=== PATIENT | female | born 1950 | race Caucasian/White ===

== ENCOUNTER → 2018-03-26 | Day surgery (SDC) | payer MEDICARE, OTHER ==
[~2018-03-26] MED LIST: ATROPINE SULFATE 1% OPHT SOLN 2 ML BTL ONE; CYAN1000P IM; DEXAMETHASONE SOD PHOS 4 MG/ML VIAL ONE; EPINEPHrine HCL (1:1000) 1 MG/ML VIAL ONE; FLURBIPROFEN 0.03% OPHT SOLN 2.5 ML BTL ONE; FLUT50SP; GLUC15009 PO; HYALURONIDASE/LIDOCAINE/BUPIVACAINE 5 ML SYR ONE; LACTATED RINGER'S 1000 ML INJ 1,000 ML ONE; LOSA50TA; NEOMYCIN/POLYMYXIN/DEXAMETHASONE OPTH OINT 3.5 GM TUBE ONE; PHENYLEPHRINE HCL 2.5 % OPTH SOLN 15 ML BTL ONE; PROPOFOL 200 MG/20 ML AMP IV ONE; RANI150T2; SODIUM CHLORIDE 0.9% INJ 10 ML ONE; TETRACAINE 0.5% OPTH SOLN 4 ML BTL ONE; TRIAMCINOLONE ACETONIDE 40 MG/ML VIAL ONE; TROPICAMIDE 1% OPHT SOLN 15 ML BTL ONE; ceFAZolin INJ 1,000 MG VIAL ONE
--- NOTE | 2018-04-06 11:16 | MP ---
cc: Meliton Mendosa MD DATE OF OPERATION: 03/26/2018 PREOPERATIVE DIAGNOSIS: Vitreomacular traction, epiretinal membrane, right eye. POSTOPERATIVE DIAGNOSIS: Vitreomacular traction, epiretinal membrane, right eye. PROCEDURE PERFORMED: Pars plana vitrectomy with membrane peeling, gas fluid exchange, all right eye. ANESTHESIA: MAC. SURGEON: Meliton Mendosa MD COMPLICATIONS: None. PROCEDURE IN DETAIL: After informed consent was obtained, the patient was brought to the operating room, placed under brief anesthesia with propofol. 10 cc of 50/50 mixture of 0.75% Marcaine and 2% lidocaine was placed in a modified [place] Lint lid block as well as peribulbar injection. The patient was then prepared and draped in usual sterile fashion. A wire lid speculum was placed in the patient's right eye. The 23-gauge vitrectomy cannulas were then placed in the lower temporal, superotemporal and superonasal quadrants 3 mm posterior to the corneoscleral limbus. Infusion cannula was placed lower temporally. A core vitrectomy was then performed. The vitrectomy is carried out as far as possible to vitreous base. Attention was then turned to the posterior pole where there was an epiretinal membrane covering the surface of the macula. It was carefully peeled off the macula with intraocular forceps. The same was then done for the internal limiting membrane. Careful indirect ophthalmoscopy with scleral depression was then performed and no peripheral retinal breaks were noted. The three vitrectomy cannulas were then removed. Subconjunctival injections of dexamethasone and Ancef were placed. An Atropine drop, Maxitrol ointment and a patch shield were then applied. The patient tolerated the procedure well. There were no complications. She will follow up tomorrow in our [place] office. ADDENDUM: An air air-fluid exchange was performed and 20% SF6 gas was placed. Mleiton Mendosa MD TAB/KD , 10:53 AM , 11:15 AM
== END | disposition home or self-care (01) ==
LOC: ESDC 12:14
PROVIDERS: ATTEND Ophthalmology Retina Specialist
DX: H43.821 Vitreomacular adhesion, right eye (principal); H35.371 Puckering of macula, right eye
CPT/HCPCS: 00145; 67042; J0171; J0690; J1100; J3301; J7120